=== PATIENT | male | born 1995 | race Caucasian/White ===

== ENCOUNTER 2017-02-05 21:44 | Emergency (ER) | payer SELFPAY ==
[~2017-02-05] VITALS: Ht 172.7 cm; Wt 49.9 kg
[~2017-02-05 21:44] MED LIST: ALBUTEROL0.09 MG/A2 INH; AMOXIL250 MG/5 M PO; AUGMENTIN 400 M1 CTB PO; AUGMENTIN 875875 MG PO; BENADRYL ALLERG25 M5 PO; BENADRYL25 M2 PO; CLARITIN10 MG PO; NAPROSYN500 MG PO; NKHM; PEPCID20 MG PO; PREDNISONE10 MG PO; PREDNISONE20 M1 PO; SILVADENE1% TP; TESSALON PERLE200 MG PO; ZANTAC 150150 MG PO; ZITHROMAX Z PA250 MG PO; ZITHROMAX Z-PA250 MG PO; ZOFRAN ODT4 MG SL
[2017-02-05 22:51] LABS: BASO % 0.2 % (0.0-1.0); HEMOGLOBIN 17.1 g/dl (14.0-18.0); LYMPH # 1.4 10*3/uL (1.3-4.4); LYMPH % 11.1 % (27.0-41.0); MEAN CELL VOLUME 83.3 fl (80.0-94.0); MEAN CORPUSCULAR HGB 29.1 pg (27.0-31.0); MEAN CORPUSCULAR HGB CONC 34.9 g/dl (33.0-37.0); MEAN PLATELET VOLUME 8.8 fl (9.6-12.3); MONO # 0.7 10*3/uL (0.1-1.0); MONO % 5.7 % (3.0-9.0); NEUT # 10.5 10*3/uL (2.3-7.9); NEUT % 82.7 % (47.0-73.0); PLATELET COUNT AUTOMATED 264 10*3/uL (130-400); RED BLOOD COUNT 5.88 10*6/uL (4.50-5.90); RED CELL DISTRI WIDTH 13.9 % (0-14.5); WHITE BLOOD COUNT 12.7 10*3/uL (4.8-10.8)
[2017-02-05 23:05] LABS: ALKALINE PHOSPHATASE 84 U/L (45-117); BILIRUBIN, TOTAL 0.8 mg/dl (0.2-1.0); BUN 16 mg/dl (7-24); CARBON DIOXIDE 22 mmol/L (21-32); CHLORIDE 104 mmol/L (98-107); EST GLOM FILT AFRICAN AMERICAN > 60 ml/min; GLUCOSE 73 mg/dL (65-99); POTASSIUM 4.3 mmol/L (3.5-5.1); SGOT/AST 27 IU/L (3-35); SGPT/ALT 26 U/L (12-78); SODIUM 139 mmol/L (136-145); TOTAL PROTEIN 8.8 gm/dL (6.4-8.2)
[2017-02-06 00:18] LABS: URINE AMPHETAMINES < 1000 (1000ng/ml); URINE BARBITURATES < 200 (200ng/ml); URINE COCAINE > 300 (300ng/ml)
== END 2017-02-06 02:44 | disposition home or self-care (01) ==
LOC: ED 21:44
PROVIDERS: Physician Assistant
DX: R11.2 Nausea with vomiting, unspecified (principal); Z88.6 Allergy status to analgesic agent

== ENCOUNTER 2023-10-22 14:44 | Emergency (ER) | payer OTHER ==
[~2023-10-22] VITALS: Ht 172.7 cm; Wt 56.7 kg
[2023-10-22] MEDS ORDERED: Tdap Vaccine 0.5 ML SYR (Adult Vaccine) IM ONE (16:15)
[2023-10-22] MEDS ORDERED: CEPHALEXIN500 M1 PO (16:19)
[2023-10-22] MEDS ORDERED: IBUPROFEN 600 MG TAB PO ONE (16:20)
[2023-10-22] MEDS ORDERED: Bacitracin Zinc 14 GM TUBE T ONE (16:20)
[2023-10-22] MEDS ORDERED: CEPHALEXIN 500 MG CAP PO ONE (16:20)
== END 2023-10-22 16:29 | disposition home or self-care (01) ==
LOC: ED 14:44
DX: S91.331A Puncture wound without foreign body, right foot, initial encounter (principal); Z88.5 Allergy status to narcotic agent; W22.8XXA Striking against or struck by other objects, initial encounter; Y93.89 Activity, other specified; Y92.89 Other specified places as the place of occurrence of the external cause; Y99.8 Other external cause status

== ENCOUNTER 2023-11-04 12:10 | Emergency (ER) | payer OTHER ==
[~2023-11-04] VITALS: Ht 172.7 cm; Wt 56.7 kg
[~2023-11-04 12:10] MED LIST changes: +CEPHALEXIN500 M1 PO
[2023-11-04] MEDS ORDERED: Motrin,Rufen800 MG PO (13:42)
== END 2023-11-04 13:47 | disposition home or self-care (01) ==
LOC: ED 12:10
DX: M25.511 Pain in right shoulder (principal); Z88.5 Allergy status to narcotic agent

== ENCOUNTER 2023-11-20 13:25 | Emergency (ER) | payer OTHER ==
[~2023-11-20] VITALS: Ht 172.7 cm; Wt 56.7 kg
[~2023-11-20 13:25] MED LIST changes: +Motrin,Rufen800 MG PO
[2023-11-20] MEDS ORDERED: PREDNISONE20 M1 PO (15:38)
== END 2023-11-20 16:00 | disposition home or self-care (01) ==
LOC: ED 13:25
DX: L23.7 Allergic contact dermatitis due to plants, except food (principal); Z88.5 Allergy status to narcotic agent

== ENCOUNTER 2024-08-10 19:55 | Emergency (ER) | payer OTHER ==
[2024-08-10] MEDS ORDERED: PENICILLIN VK500 MG PO (20:16)
[2024-08-10] MEDS ORDERED: PENICILLIN V POTASSIUM 500 MG TAB PO ONE (20:20)
[2024-08-10] MEDS ORDERED: Ketorolac Tromethamine 30 MG/ML VIAL IM ONE (20:20)
== END 2024-08-10 20:18 | disposition home or self-care (01) ==
LOC: ED 19:55
DX: K08.89 Other specified disorders of teeth and supporting structures (principal); Z88.5 Allergy status to narcotic agent